=== PATIENT | male | born 1940 | race Two or more races ===

== ENCOUNTER 2019-12-27 00:38 | Inpatient (IN) | payer OTHER ==
[~2019-12-27] VITALS: Ht 165.1 cm; Wt 86.2 kg
[2019-12-27] MEDS ORDERED: ATORVASTATIN CA10 MG (01:00)
[2019-12-27] MEDS ORDERED: LASIX20 MG (01:00)
[2019-12-27] MEDS ORDERED: ELIQUIS5 MG (01:00)
[2019-12-27] MEDS ORDERED: VASOTEC2.5 MG (01:00)
[2019-12-27] MEDS ORDERED: GLIPIZIDE XL5 MG (01:01)
[2019-12-27] MEDS ORDERED: CARVEDILOL3.125 MG (01:01)
--- NOTE | 2019-12-27 01:01 | NUR ---
PTE ALERTA Y ORIENTADO X 3 ESFERAS, EN COMPANIA DE FAMILIARQUIENES REFIERE DOLOR ABDOMINAL DESDE MARIA DEL ROSARIO. SE UBICA EN AREA DE OBSERVACION.
--- NOTE | 2019-12-27 01:58 | NUR ---
SE TRASFIERE PTE A LA UNIDAD DE CRITICO SE CONECTA A MONITOR CARDIACO Y OXIMETRIA. PTE SE LE REALIZA RX Y LABORATORIO ECTOR ORDEN MEDICA DEL JOAN HARMAN. SE LE ADMINITRA MEDICAMENTO ECTOR ORDENADO POR EL DE FOLIE CATHETE Y LE ADMINISTRA LASIX 20 MG IV.SE LE REALIZA EKG Y SE OBSERVA POR CAMBIOS.
--- NOTE | 2019-12-27 02:29 | NUR ---
POR ORDEN MEDICA DEL SE LE ADMINISTRA 20 MG MAS DE LASIX IV Y SE LE COMIENZA EN TRIDIL 50/250 A 3 ML HR . SE LE REALIZA ABG'S POR MS WHITE Y SE LE COLOCA POR ORDEN DEL JOY HARMAN CANULA NASAL A 3 LTR A PTE. SE OBSERVA POR CAMBIOS.
--- NOTE | 2019-12-27 07:12 | NUR ---
SE RECIBE PTE ALERTA Y ORIENTADO X3 EN CONNIE #1 DE UIDAD DE CRITICO. PTE EN CONNIE CON BARANDAS ELEVADAS, CABECERA A 30 GRADOS. PTE SE OBSERVA CONECTADOA MONITOR CARDIACO CON OXIMETRIA DE PULSO CONTINUA. PTE CON CN A 3LTS COLOCADA. PTE CON H/L 2 EN BRAZO RT LOS CUALES SE OBSERVAN PATENTES LIBRES DE EDEMA Y ENROJECIMIENTO. PTE CON DRIP DE TRIDIL 50MG/250ML BAJANDO A 3ML/HR. PTE AL MOMENTO NO REFIERE DOLOR. PTE CON MANCIA COLOCADO BAJANDO A GRAVEDAD. PTE EN ESPERA DE CONSULTA CON MEDICINA INTERNA. PTE SE CONTINUA MONITORIANDO POR CAMBIOS EN LEE CONDICION.
== END 2019-12-30 14:23 | disposition home or self-care (01) | DRG 292 ==
LOC: ER 00:38 → SURH 11:27
PROVIDERS: ADMIT Internal Medicine
PROC: 4A12X4Z Monitoring of Cardiac Electrical Activity, External Approach (ICD-10-PCS; principal; 2019-12-27)
DX: I11.0 Hypertensive heart disease with heart failure (principal); I48.20 Chronic atrial fibrillation, unspecified; I50.23 Acute on chronic systolic (congestive) heart failure; E11.9 Type 2 diabetes mellitus without complications; R31.0 Gross hematuria; Z95.810 Presence of automatic (implantable) cardiac defibrillator; Z79.01 Long term (current) use of anticoagulants; Z95.1 Presence of aortocoronary bypass graft; T45.515A Adverse effect of anticoagulants, initial encounter

== ENCOUNTER 2020-03-28 16:08 | Emergency (ER) | payer OTHER ==
[~2020-03-28] VITALS: Ht 175.3 cm; Wt 79.4 kg
[~2020-03-28 16:08] MED LIST: ATORVASTATIN CA10 MG; CARVEDILOL3.125 MG; ELIQUIS5 MG; GLIPIZIDE XL5 MG; LASIX20 MG; VASOTEC2.5 MG
== END 2020-03-28 22:15 | disposition home or self-care (01) ==
LOC: ER 16:08
DX: S80.02XA Contusion of left knee, initial encounter (principal); S80.01XA Contusion of right knee, initial encounter; S50.02XA Contusion of left elbow, initial encounter; S50.01XA Contusion of right elbow, initial encounter; I11.0 Hypertensive heart disease with heart failure; I50.9 Heart failure, unspecified; W18.39XA Other fall on same level, initial encounter; Y93.89 Activity, other specified; Y92.018 Other place in single-family (private) house as the place of occurrence of the external cause; Y99.8 Other external cause status

== ENCOUNTER 2022-09-21 00:05 | Inpatient (IN) | payer OTHER ==
[~2022-09-21] VITALS: Ht 170.2 cm; Wt 75.3 kg
[2022-09-21] MEDS ORDERED: ZOCOR20 MG PO (00:37)
[2022-09-21] MEDS ORDERED: TAMS0.4C PO (00:38)
[2022-09-21] MEDS ORDERED: BUMETANIDE1 MG PO (00:38)
[2022-09-21] MEDS ORDERED: METOLAZONE2.5 MG PO (00:39)
--- NOTE | 2022-09-21 00:41 | NUR ---
SE RECIBE PTE ALERTA ORIENTADO EN PERSONA.FAMILIAR RESFIERE PTE PRESENTA TOS Y DIFICULTAD RESPIRATORIA DESDE EL PASADO SABADO.FAMILIAR REFIERE PTE TUVO DIARREAS X2 HOY EN LA TARDE.FAMILIAR REFIERE PTE PRESENTA TOS CON SECRECIONES CLARAS.SE MIREILLE S/V Y SE UBICA.
--- NOTE | 2022-09-21 01:46 | NUR ---
BP MANUAL 100/70
--- NOTE | 2022-09-21 03:51 | NUR ---
0211 ME TRANSFIEREN PACIENTE DEL AREA DE OBSERVACION Y SE UBICA EN CAMA 2 EN UNIDAD DE CRITICO. SE CONECTA A MONITOR CARDIACO Y OXIMETRIA DE PULSO. PACIENTE ALERTA Y ORIENTADO EN PERSONA Y LUGAR EN POSICION SENTADO EN CAMA CON BARANDAS ELEVADAS Y INTERCOM ACCESIBLE. SE OBSERVA PACIENTE CON RESPIRACIONES FORZADAS Y NO TOLERA LOS CAMBIOS DE POSICION. SE COLOCA CANULA NASAL A DOS LITROS. PACIENTE SATURANDO OXIGENO MANUAL A 95%. PACIENTE CON DOS H/L EN BRAZO SNE PATENTE Y SHERLY DE EDEMA Y ERITEMA. 0220 SE ADMINISTRA MEDICAMENTOS ORDENADOS POR . TRIDIL 50MG/250ML D5W EN HOLD AL MOMENTO POR HIPOTENSION. SE OFRECE CAMBIO DE SABANAS Y LIMPIEZA A PACIENTE DEBIDO A QUE SE HABIA ORINADO. SE INSERTA SONDA URINARIA BAJO MEDIDAS ASEPTICAS Y ESTERILES. PACIENTE ELIMINO 300ML DE ORINA COLOR AMARILLO CON SEDIMENTACION. PQACIENTE NO TOLERA LOS CAMBIOS DE POSICION. 0230 PERSONAL DE RADIOLOGIA REALIZA PLACA DE PECHO ORDENADA POR . 0300 SE ADMINISTRA DRIP DE LEVOPHED 8MG/250ML D5W BAJANDO A 10ML/HR. SE MANTIENE BAJO OBSERVACION POR CAMBIOS SIGNIFICATIVOS.
--- NOTE | 2022-09-21 06:30 | NUR ---
SE ELIMINO 1000ML DE ORINA COLOR AMARILLO.
--- NOTE | 2022-09-21 09:57 | NUR ---
7:00AM: SE RECIBE PACIENTE DEL TURNO ANTERIOR, EL MISMO SE ENCUENTRA UBICADO EN CONNIE CON BARANDAS ELEVADAS POR PRECAUCION A CAIDAS. PACIENTE ALERTA Y SONOLIENTO, SE OBSERVA CONECTADO A MONITOR CARDIACO Y OXIMETRIA DE PULSO. CANULA NASAL A 2LT. CANALIZADO X2 EN BRAZO SEN, BAJANDO 0.9% NSS A 75ML/HR, LEVOPHED 8MG EN 250ML D5W% BAJANDO A 6ML. DR HAMILTON ORDENA VERBALMENTE PONER EN HOLD TRIDIL POR PRESIONES BAJAS E IR SUBIENDO LEVOPHED ECTOR SEA REQUERIDO. PENDIENTE COLECTAR MUESTRA DE TROPONINA A LAS 9:45AM. SE OBSEVA PACIENTE CON MANCIA CATETER CON EGRESO URINARIO COLOR AMARILLO OBSCURO. SE MANTIENE PACIENTE BAJO OBSERVACION.
--- NOTE | 2022-09-21 11:36 | NUR ---
11:30AM: PACIENTE AUN CONTINUA CON MOLESTIA EN EL EPIGASTRICO 11:33AM: PERSONAL DE LABORATORIO LLAMA PARA VALOR PANICO, TROPONINAS EN 1029.0, SE LLAMA A DR [place] SE LE INDICA VALOR PANICO, SE LE ORIENTA QUE PACIENTE TIENE LAS PRESIONES MAS ESTABLES Y QUE LEVOPHED 8MG EN 250ML D5W SE ENCUENTRA BAJANDO A 25ML/HR. SE LE INDICA QUE SE LE COMIENZA [place] DE TRIDIL BAJANDO A 1ML/HR. DR NO ORDENA ALGUNA OTRA ORDEN MEDICA Y ESTA DE ACUERDO CON TX EJECUTADO.
--- NOTE | 2022-09-21 15:18 | NUR ---
PATIENT IS RECIEVED ALERT AND ORIENTED IN PERSON, BUT NOT TIME OR PLACE. PATIENT IS IN BED WITH RAILINGS UP AND CONNECTED TO TELEMETRY AND OXIMETRY. PATIENT HAS TRIDIL DRIP AT 1 ML/HR, IVF 0.9% NACL AT 75 ML/HR, AND LEVOPHED DRIP AT 25 ML/HR. PATIENT HAS PATENT IV LINES AND CLEAN VENIPUNCTURES. PATIENT HAS NASAL CANULA AT 3 LITERS AND A MANCIA TO GRAVITY. PATIENT HAS PENDING ADMISSION TO INTENSIVE BAUMAN.
[2022-10-08] MEDS ORDERED: ELIQUIS2.5 MG PO (18:04)
[2022-10-08] MEDS ORDERED: HALOPERIDOL5 MG PO (18:05)
[2022-10-08] MEDS ORDERED: LIPITOR40 MG PO (18:05)
[2022-10-08] MEDS ORDERED: BUMETANIDE1 MG PO (18:06)
[2022-10-08] MEDS ORDERED: JARDIANCE10 MG PO (18:07)
[2022-10-08] MEDS ORDERED: SPIRONOLACTONE25 MG PO (18:08)
[2022-10-08] MEDS ORDERED: TOPROL XL25 M1 PO (18:08)
[2022-10-08] MEDS ORDERED: MIDODRINE HCL10 MG PO (18:09)
== END 2022-10-08 21:47 | disposition home or self-care (01) | DRG 280 ==
LOC: ER 00:05 → ICU-2 17:05 → ICU 09-25 17:55 → MEDI 09-29 20:29 → ICU 09-30 00:30 → MEDJ 10-01 14:53 → MEDI 10-02 13:00
PROVIDERS: ADMIT Internal Medicine; ATTEND Internal Medicine
PROC: B246ZZZ Ultrasonography of Right and Left Heart (ICD-10-PCS; principal; 2022-09-21)
PROC: 3E0F7GC Introduction of Other Therapeutic Substance into Respiratory Tract, Via Natural or Artificial Opening (ICD-10-PCS; 2022-09-29)
PROC: 4A12X4Z Monitoring of Cardiac Electrical Activity, External Approach (ICD-10-PCS; 2022-10-01)
PROC: BW28ZZZ Computerized Tomography (CT Scan) of Head (ICD-10-PCS; 2022-10-04)
DX: I13.0 Hypertensive heart and chronic kidney disease with heart failure and stage 1 through stage 4 chronic kidney disease, or unspecified chronic kidney disease (principal); I50.33 Acute on chronic diastolic (congestive) heart failure; I21.4 Non-ST elevation (NSTEMI) myocardial infarction; U07.1 COVID-19; R65.10 Systemic inflammatory response syndrome (SIRS) of non-infectious origin without acute organ dysfunction; I11.0 Hypertensive heart disease with heart failure; I43 Cardiomyopathy in diseases classified elsewhere; N18.9 Chronic kidney disease, unspecified; E11.22 Type 2 diabetes mellitus with diabetic chronic kidney disease; E78.49 Other hyperlipidemia; Z79.4 Long term (current) use of insulin; Z95.810 Presence of automatic (implantable) cardiac defibrillator; R31.0 Gross hematuria; Z95.1 Presence of aortocoronary bypass graft; F03.90 Unspecified dementia, unspecified severity, without behavioral disturbance, psychotic disturbance, mood disturbance, and anxiety